=== PATIENT | female | born 1985 | race Caucasian/White ===

== ENCOUNTER 2021-05-16 14:28 | Emergency (ER) | payer OTHER ==
[2021-05-16 14:47] VITALS: BP 145/89; PULSE 68; O2SAT 99
[2021-05-16] MEDS ORDERED: XYLOCAINE 1% HCL 20 ML MDV ONE (15:29)
[2021-05-16] MEDS ORDERED: XYLOCAINE 1% HCL 20 ML MDV IJ ONE (15:59)
[2021-05-16] MEDS ORDERED: Adacel Vial IM ONE ×2 (16:04→16:31)
[2021-05-16] MEDS ORDERED: BACIGUENT PACKET ONE (16:04)
--- NOTE | 2021-05-16 16:04 | ERPHSYRPT ---
- History of Present Illness Time Seen by Provider: 05/16/21 14:50 Source: patient Exam Limitations: no limitations Patient Subjective Stated Complaint: Laceration Triage Nursing Assessment: Patient ambulated back to ED and transferred self to bed. Patient A+O x3. Patient's skin pink, warm and dry. patient complains of laceration to right foot in between 4th and 5th digit caused by a jesus floor vent. She stated she walked across it and felt a sharp pain. 0.2cm X 0.2 cm laceration noted in between 4th and 5th digit. Patient complains of pain 5/10. Physician History: Patient is a 36-year-old female presents to our ED for evaluation and treatment of a laceration to the plantar aspect of her right fifth digit at the flexor crease. No involvement of the tendon. Patient able to flex the fifth and fourth digit without any complications. Patient states she lacerated her toe on a floor vent. Injury occurred just prior to arrival. Tetanus is not up-to-date. Pain described as an ache that is localized. No radiation. There was no blunt trauma to the involved toe. Patient has no bony tenderness. Symptoms are mild to moderate in intensity. Ambulation reproduces pain. Patient voices no other complaints concerns at this time. Timing/Duration: today Severity: moderate Modifying Factors: Improves With: movement Associated Symptoms: denies symptoms Allergies/Adverse Reactions: No Known Drug Allergies Allergy (Unverified 05/16/21 14:40) Hx Tetanus, Diphtheria Vaccination/Date Given: No Hx Influenza Vaccination/Date Given: No Hx Pneumococcal Vaccination/Date Given: No Immunizations Up to Date: Yes Travel Risk - International Travel Have you traveled outside of the country in past 3 weeks: No - Coronavirus Screening Are you exhibiting any of the following symptoms?: No Close contact with a COVID-19 positive Pt in past 14-21 Days: No - Vaccine Status Have you recieved a Covid-19 vaccination: No - Review of Systems Constitutional: No Symptoms, No Fever, No Chills Eyes: No Symptoms Ears, Nose, & Throat: No Symptoms Respiratory: No Symptoms, No Cough, No Dyspnea Cardiac: No Symptoms, No Chest Pain, No Edema, No Syncope Abdominal/Gastrointestinal: No Symptoms, No Abdominal Pain, No Nausea, No Vomiting, No Diarrhea Genitourinary Symptoms: No Symptoms, No Dysuria Musculoskeletal: No Symptoms, No Back Pain, No Neck Pain Skin: No Symptoms, No Rash Neurological: No Symptoms, No Dizziness, No Focal Weakness, No Sensory Changes Psychological: No Symptoms Endocrine: No Symptoms Hematologic/Lymphatic: No Symptoms Immunological/Allergic: No Symptoms All Other Systems: Reviewed and Negative - Past Medical History Pertinent Past Medical History: No Neurological History: No Pertinent History ENT History: No Pertinent History Cardiac History: No Pertinent History Respiratory History: No Pertinent History Endocrine Medical History: No Pertinent History Musculoskeletal History: Fibromyalgia, Rheumatoid Arthritis GI Medical History: Crohns Disease History: No Pertinent History Psycho-Social History: No Pertinent History Female Reproductive Disorders: No Pertinent History Other Medical History: mild form of spina bifida, anemia - Past Surgical History Past Surgical History: No Neuro Surgical History: No Pertinent History Cardiac: No Pertinent History Respiratory: No Pertinent History Gastrointestinal: Cholecystectomy Genitourinary: No Pertinent History Musculoskeletal: No Pertinent History Female Surgical History: Section, Tubal Ligation - Social History Smoking Status: Current every day smoker How long have you smoked: years Exposure to second hand smoke: Yes Drug Use: none Patient Lives Alone: Yes - Female History Hx Last Menstrual Period: last month Hx Now: No - Nursing Vital Signs Nursing Vital Signs: Initial Vital Signs Temperature 98.4 F 05/16/21 14:41 Pulse Rate 68 05/16/21 14:41 Respiratory Rate 18 05/16/21 14:41 Blood Pressure 145/89 05/16/21 14:41 O2 Sat by Pulse Oximetry 99 05/16/21 14:41 Pain Scale Pain Intensity 5 - Physical Exam General Appearance: no apparent distress, alert Eye Exam: PERRL/EOMI, eyes nml inspection Ears, Nose, Throat Exam: normal ENT inspection, TMs normal, pharynx normal, moist mucous membranes Neck Exam: normal inspection, non-tender, supple, full range of motion Respiratory Exam: normal breath sounds, lungs clear, airway intact, No respiratory distress Cardiovascular Exam: regular rate/rhythm, normal heart sounds, normal peripheral pulses Gastrointestinal/Abdomen Exam: soft, normal bowel sounds, No tenderness, No mass Back Exam: normal inspection, normal range of motion, No CVA tenderness, No vertebral tenderness Extremity Exam: normal inspection, normal range of motion, pelvis stable, other (There is a 0.5 cm x 0.2 cm laceration at the flexor crease of the right fifth digit. No tendon involvement. The digit is neurovascular intact distally. Compartments are soft. Cap refill less than 2 seconds. Sensation intact.) Neurologic Exam: alert, oriented x 3, cooperative, normal mood/affect, nml cerebellar function, nml station & gait, sensation nml, No motor deficits Skin Exam: normal color, warm, dry, No rash Lymphatic Exam: No adenopathy SpO2 Interpretation: normal SpO2: 99 O2 Delivery: Room Air Procedures - Laceration/Wound Repair Right Toe Time of Procedure: 16:14 Wound Location: Right Wound Length (cm): 0.5 Wound's Depth, Shape: superficial Wound Explored: clean Irrigated: Yes Hibiclens Prep: Yes Anesthesia: 1% Lidocaine Volume Anesthetic (ccs): 3 Wound Debrided: No debridement indicated. Wound Repaired With: sutures Suture Size/Type: 5-0, nylon Number of Sutures: 2 Layer Closure?: No Sterile Dressing Applied?: Yes Splint Applied?: Yes Sling Applied?: No Progress: 05/16/21 16:15 Patient tolerated procedure well. Patient involved digit neurovascular intact distally post procedure. - Course Nursing assessment & vital signs reviewed: Yes Ordered Tests: Medication Summary Discontinued Medications Generic Name Dose Route Start Last Admin Trade Name Freq PRN Reason Stop Dose Admin Bacitracin Zinc Confirm 05/16/21 16:04 Bacitracin Packet 0.9 Gm Pckt Administered 05/16/21 16:05 Dose 1 gm .ROUTE .STK-MED ONE Diphtheria/Tetanus/Acell Pertussis 0.5 ml 05/16/21 16:04 Tdap --Diph,Pertuss(Acell),Tet Vac/Pf 0.5 Ml Vial IM 05/16/21 16:05 .ONCE ONE Lidocaine HCl Confirm 05/16/21 15:29 Lidocaine Hcl 1% 20 Ml Mdv 20 Ml Ml Administered 05/16/21 15:30 Dose 1 ml .ROUTE .STK-MED ONE Lidocaine HCl 5 ml 05/16/21 15:59 05/16/21 16:00 Lidocaine Hcl 1% 20 Ml Mdv 20 Ml Ml IJ 05/16/21 16:00 5 ml STAT ONE Administration - Progress Progress: improved Progress Note: Patient reassessed. Pain resolved. Patient received a local using 1% lidocaine. Laceration was repaired using 2 simple interrupted sutures. No complications. Patient neurovascular intact distally post procedure. Tetanus not up-to-date. Adacel administered in our ED. A prescription for Keflex was provided to patient. Patient has 2 sutures and is aware that the sutures will need to be removed in 1 week's time. 05/16/21 16:04 Portions of this note were created with voice recognition technology. There may be grammatical, spelling, punctuation or sound alike errors - Departure Departure Disposition: Home Clinical Impression: Toe laceration Condition: Stable Critical Care Time: No Referrals: DOCTOR,NO FAMILY [Primary Care Provider] - CARLI ARREDONDO MD [ACTIVE STAFF] - Additional Instructions: You have 2 sutures at your right small toe. The sutures will need to be removed in 7 days. Discharge/Care Plan ROBERT MENDEZ was seen on 05/16/21 in the Emergency Room. The patient was counseled regarding Diagnosis,Lab results, Imaging studies, need for follow up and when to return to the Emergency Room. Prescriptions given: Discharge Note I have spoken with the patient and/or caregivers. I have explained the patient's condition, diagnosis and treatment plan based on the information available to me at this time. I have answered the patient's and/or caregiver's questions and addressed any concerns. The patient and/or caregivers have as good understanding of the patient's diagnosis, condition and treatment plan as can be expected at this point. The vital signs have been stable. The patient's condition is stable and appropriate for discharge from the emergency department. The patient will pursue further outpatient evaluation with the primary care physician or other designated or consulting physician as outlined in the discharge instructions. The patient and/or caregivers are agreeable to this plan of care and follow-up instructions have been explained in detail. The patient and/or caregivers have received these instruction. The patient/and or caregivers are aware that any significant change in condition or worsening of symptoms should prompt an immediate return to this or the closest emergency department or call 911. Prescriptions: Cephalexin Mh 500 mg [Keflex 500 mg] 500 mg PO TID 7 Days #21 cap
== END 2021-05-16 16:46 | disposition home or self-care (01) ==
LOC: ED 14:28
DX: S91.114A Laceration without foreign body of right lesser toe(s) without damage to nail, initial encounter (principal); M06.9 Rheumatoid arthritis, unspecified; M79.7 Fibromyalgia
CPT/HCPCS: 12001; 90471; 90715; 99284; A9270-GY